=== PATIENT | female | born 1935 | race Caucasian/White ===

== ENCOUNTER 2017-08-14 09:20 | Day surgery (SDC) | payer OTHER ==
[~2017-08-14 09:20] MED LIST: BENZONATATE200 M1 PO; CLONAZEPAM2 MG PO; TIZANIDINE HCL4 MG PO; TUSSIN15 MG/5 M1 PO; VALSARTAN-HCTZ1 EAC4 PO
[2017-08-14] MEDS ORDERED: KEFLEX250 MG PO (15:37)
[2017-08-14] MEDS ORDERED: ULTRACET PO (15:39)
== END 2017-08-14 17:50 | disposition home or self-care (01) ==
LOC: CIR.AMB 09:20
DX: N39.41 Urge incontinence (principal); N32.81 Overactive bladder
CPT/HCPCS: 64590; 64581; C1767; C1778

== ENCOUNTER 2023-09-18 06:00 | Day surgery (SDC) | payer OTHER ==
[~2023-09-18] VITALS: Ht 154.9 cm; Wt 90.7 kg
[~2023-09-18 06:00] MED LIST changes: +ALENDRONATE SOD70 MG PO; +HORIZANT300 MG PO; +KEFLEX250 MG PO; +MONTELUKAST SOD10 MG PO; +NORVASC5 MG PO; +OXYBUTYNIN CHLO10 MG PO; +PLAVIX75 MG PO; +TOPROL XL50 M1 PO; +ULTRACET PO; +ZYRTEC10 M3 PO
[2023-09-18] MEDS ORDERED: CEFAZOLIN SODIUM 1,000 MG VIAL IV ONE (11:00)
[2023-09-18] MEDS ORDERED: LIDOCAINE HCL 1% 20ML VIAL IJ ONE (11:00)
[2023-09-18] MEDS ORDERED: TRAM1TAB98 PO (11:13)
[2023-09-18] MEDS ORDERED: CEPHALEXIN250 MG PO (11:13)
== END 2023-09-18 13:25 | disposition home or self-care (01) ==
LOC: CIR.AMB 06:00
PROVIDERS: ATTEND Obstetrics & Gynecology Gynecology
DX: R15.9 Full incontinence of feces (principal); T85.113A Breakdown (mechanical) of implanted electronic neurostimulator, generator, initial encounter; N39.41 Urge incontinence; N32.81 Overactive bladder
CPT/HCPCS: 64590; 95972; C1767